=== PATIENT | female | born 1990 | race African-American/Black ===

== ENCOUNTER 2016-08-03 10:44 | Emergency (ER) | payer MEDICAID ==
[~2016-08-03] VITALS: Ht 152.4 cm; Wt 55.0 kg
[2016-08-03] MEDS ORDERED: KETOROLAC 30MG/ML VIAL IV ONE (12:15)
[2016-08-03] MEDS ORDERED: SODIUM CHLORIDE 0.9% 1,000 ML IV ONE (12:15)
[2016-08-03 12:25] LABS: BASOPHILS % 0.4 % (0.0-2.0); DIFFERENTIAL COMMENT 0; HEMATOCRIT. 36.4 % (36.0-48.0); HEMOGLOBIN. 12.3 g/dL (12.0-16.0); LYMPHOCYTES % 9.2 % (20.0-50.0); MEAN CORPUSCULAR HEMOGLOBIN 33.6 pg (28.0-32.0); MEAN CORPUSCULAR HGB CONC 33.8 g/dL (31.0-37.0); MEAN CORPUSCULAR VOLUME 99.4 fL (81.0-99.0); MEAN PLATELET VOLUME 6.7 fl (7.4-10.4); MONOCYTES % 5.9 % (2.0-8.0); NEUTROPHILS % 84.5 % (40.0-76.0); PLATELET 194 x1000/uL (130-400); RED BLOOD CELL COUNT 3.67 mill/uL (4.2-5.4); RED CELL DISTRIBUTION WIDTH 12.1 % (11.6-14.6)
[2016-08-03 12:30] LABS: CHLORIDE 106 mEq/L (98-107)
[2016-08-03 12:35] LABS: ANION GAP 12; CALCIUM 8.3 mg/dL (8.5-10.1); CARBON DIOXIDE 28 mEq/L (21-32); INDEX HEMOLYSI 1 (1-3); INDEX ICTERIC 1 (1-4); INDEX LIPEMIC 1 (1-3); UREA NITROGEN BLOOD 11 mg/dL (7-21); eGFR > 60 mL/min (>60)
[2016-08-03 13:11] LABS: CLARITY URINE TURBID (CLEAR); COLOR URINE ORANGE (YELLOW); GLUCOSE URINE NEGATIVE (NEGATIVE); KETONES URINE NEGATIVE (NEGATIVE); LEUKOCYTE ESTERASE URINE 3+ (NEGATIVE); NITRITE URINE POSITIVE (NEGATIVE); OCCULT BLOOD URINE 3+ (NEGATIVE); PH URINE 6.5 (4.5-8.0); PROTEIN URINE 2+ (NEGATIVE); SPECIFIC GRAVITY URINE 1.011 (1.005-1.030)
[2016-08-03 13:28] LABS: RBC URINE TNTC /hpf (0-2); WBC URINE TNTC /hpf (0-2)
[2016-08-03 13:33] LABS: BACTERIA URINE 3+; SQUAMOUS EPITHELIAL CELL URINE 2+ /lpf (RARE/1+)
[2016-08-03 16:20] VITALS: BP 111/68
== END 2016-08-03 16:23 | disposition home or self-care (01) ==
LOC: ER 12:17
DX: N12 Tubulo-interstitial nephritis, not specified as acute or chronic (principal)
CPT/HCPCS: 36415; 71020; 80048; 81001; 81025; 85025; 85379; 93005; 96361; 96374; 99285; J1885; J7030; Z7610

== ENCOUNTER 2018-04-17 00:53 | Emergency (ER) | payer MEDICAID ==
[~2018-04-17] VITALS: Ht 152.4 cm; Wt 49.9 kg
[2018-04-17] MEDS ORDERED: SILVER SULFADIAZINE 1% CREAM 50GM TOP STA (01:12)
[2018-04-17] MEDS ORDERED: HYDROCODONE/ACETAMINOPHEN 5/325MG TABLET PO ONE (01:15)
[2018-04-17 01:46] VITALS: BP 108/71
== END 2018-04-17 01:48 | disposition home or self-care (01) ==
LOC: ER 00:53
DX: T22.20XA Burn of second degree of shoulder and upper limb, except wrist and hand, unspecified site, initial encounter (principal); T31.0 Burns involving less than 10% of body surface; J45.909 Unspecified asthma, uncomplicated; Z98.890 Other specified postprocedural states; X10.0XXA Contact with hot drinks, initial encounter; Y93.89 Activity, other specified; Y92.89 Other specified places as the place of occurrence of the external cause; Y99.8 Other external cause status
CPT/HCPCS: 16020; 81025; 99284

== ENCOUNTER 2021-05-15 17:42 | Emergency (ER) | payer MEDICAID ==
[~2021-05-15] VITALS: Ht 157.5 cm; Wt 66.0 kg
[2021-05-15] MEDS ORDERED: KETOROLAC 30MG/ML VIAL IM ONE (19:30)
[2021-05-15] MEDS ORDERED: AMPICILLIN SOD/SULBACTAM NA 3 G in SODIUM CHLORIDE 0.9% 100 ML IV SCH (19:30)
[2021-05-15] MEDS ORDERED: AMOXICILLIN/POTASSIUM CLAVULANATE 875/125MG TAB PO ONE (20:00)
[2021-05-15] MEDS ORDERED: AMOX-424 MT (21:00)
[2021-05-15 21:15] VITALS: BP 120/75
== END 2021-05-15 21:36 | disposition home or self-care (01) ==
LOC: ER 17:42
DX: K04.7 Periapical abscess without sinus (principal); Z98.890 Other specified postprocedural states
CPT/HCPCS: 96372; 99283; J1885; J0295; J7050